=== PATIENT | female | born 1940 | race Caucasian/White ===

== ENCOUNTER → 2017-04-12 10:23 | Outpatient (CLI) | payer OTHER ==
[~2017-04-12 10:23] MED LIST: CALTRATE 600600 MG; ENALAPRIL-HCTZ1 TAB
== END | disposition home or self-care (01) ==
LOC: LAB 10:23 → EKG 10:23
DX: I10 Essential (primary) hypertension (principal)

== ENCOUNTER 2017-04-12 11:16 | Outpatient (CLI) | payer OTHER | END 2017-04-12 17:15 | disposition home or self-care (01) | LOC: RAD 11:16 | DX: R07.2 Precordial pain (principal) ==

== ENCOUNTER 2017-04-16 10:00 | Inpatient (IN) | payer OTHER ==
[~2017-04-16] VITALS: Ht 157.5 cm; Wt 73.5 kg
== END 2017-04-25 16:40 | DRG 470 ==
LOC: EDSTATUS 10:00 → ADM 10:00 → O/R 04-23 08:00 → SURG 04-23 08:00 → SURH 04-23 10:00 → SURG 04-23 17:21
PROVIDERS: Orthopaedic Surgery
PROC: 0SRD0J9 Replacement of Left Knee Joint with Synthetic Substitute, Cemented, Open Approach (ICD-10-PCS; principal; 2017-04-23 12:30)
DX: M17.12 Unilateral primary osteoarthritis, left knee (principal); I10 Essential (primary) hypertension

== ENCOUNTER 2017-09-28 08:26 | Outpatient (CLI) | payer OTHER | END 2017-09-28 08:29 | disposition home or self-care (01) | LOC: SONOGRAMA 08:26 | DX: K76.0 Fatty (change of) liver, not elsewhere classified (principal) ==

== ENCOUNTER 2017-10-25 10:04 | Outpatient (CLI) | payer OTHER | END 2017-10-25 10:07 | disposition home or self-care (01) | LOC: RAD 10:04 | DX: M25.551 Pain in right hip (principal); M25.552 Pain in left hip ==

== ENCOUNTER 2017-11-08 10:17 | Outpatient (CLI) | payer OTHER | END 2017-11-08 10:25 | disposition home or self-care (01) | LOC: LAB 10:17 | DX: R79.89 Other specified abnormal findings of blood chemistry (principal) ==

== ENCOUNTER 2017-11-15 09:29 | Outpatient (CLI) | payer OTHER | END 2017-11-15 17:00 | disposition home or self-care (01) | LOC: TOM 09:29 | DX: N20.0 Calculus of kidney (principal); R31.29 Other microscopic hematuria | CPT/HCPCS: 74178; Q9965 ==

== ENCOUNTER 2018-04-01 12:41 | Outpatient (CLI) | payer OTHER | END 2018-04-01 12:52 | disposition home or self-care (01) | LOC: RAD 12:41 | DX: J44.9 Chronic obstructive pulmonary disease, unspecified (principal); R07.89 Other chest pain ==

== ENCOUNTER → 2018-11-27 | Outpatient (CLI) | payer OTHER | END | disposition home or self-care (01) | LOC: TOM 09:48 | DX: M16.11 Unilateral primary osteoarthritis, right hip (principal); Z96.653 Presence of artificial knee joint, bilateral; M70.61 Trochanteric bursitis, right hip; M16.0 Bilateral primary osteoarthritis of hip ==

== ENCOUNTER 2019-01-28 12:15 | Outpatient (CLI) | payer OTHER | END 2019-01-28 12:19 | disposition home or self-care (01) | LOC: LAB 12:15 | DX: N39.0 Urinary tract infection, site not specified (principal); B96.29 Other Escherichia coli [E. coli] as the cause of diseases classified elsewhere ==

== ENCOUNTER → 2019-02-10 11:45 | Outpatient (CLI) | payer OTHER | END | disposition home or self-care (01) | LOC: LAB 11:45 | DX: N39.0 Urinary tract infection, site not specified (principal) ==

== ENCOUNTER 2021-08-10 10:36 | Outpatient (CLI) | payer OTHER | END 2021-08-10 11:17 | disposition home or self-care (01) | LOC: TOM 10:36 | PROVIDERS: ATTEND Internal Medicine Cardiovascular Disease | DX: J44.9 Chronic obstructive pulmonary disease, unspecified (principal); R00.9 Unspecified abnormalities of heart beat ==